=== PATIENT | female | born 1950 | race Hispanic/Latino ===

== ENCOUNTER → 2022-11-07 | Day surgery (SDC) | payer MEDICARE ==
[~2022-11-07] MED LIST: CALCITRIOL0.5 MCG PO; COREG12.5 MG PO; FARXIGA10 MG PO; FENTANYL CITRATE/PF 100MCG/2 ML INJ ONE; LACTATED RINGER'S 1,000 ML ONE; LEVOTHYROXINE75 MCG PO; METOCLOPRAMIDE HCL 10 MG/2ML VIAL ONE; MIDAZOLAM HCL 2 MG/2 ML VIAL ONE; ONDANSETRON HCL INJ 2MG/ML 2ML 2 MG/ML VIAL ONE; OR PHACO EYE KIT ONE; OZEMPIC0.25 MG/0. SC; POVIDONE IODINE 0.05% 0.05 % ML PO ONE; PREOP PHACO EYE KIT ONE; SIMVASTATIN20 MG PO
[2022-11-07 10:20] VITALS: BP 120/66
== END | disposition home or self-care (01) ==
LOC: OR 06:55
PROVIDERS: ATTEND Ophthalmology
DX: H25.11 Age-related nuclear cataract, right eye (principal); Z79.85 Long-term (current) use of injectable non-insulin antidiabetic drugs; Z79.899 Other long term (current) drug therapy
CPT/HCPCS: 36415; 66984; 82948; J2250; J2405; J2765; J3010; J7121; V2632